=== PATIENT | male | born 1980 | race Caucasian/White ===

== ENCOUNTER 2016-12-05 14:20 | Emergency (ER) | payer OTHER ==
[~2016-12-05] VITALS: Ht 172 cm; Wt 75.0 kg
[2016-12-05 14:30] VITALS: BP 137/96
[2016-12-05] MEDS ORDERED: IBUP800T19 PO (14:47)
--- NOTE | 2016-12-05 14:47 | PHYS DOC ---
Past History Past Medical History: No Pertinent History Past Surgical History: Tonsillectomy Alcohol Use: Occasionally Drug Use: None Adult General Chief Complaint Chief Complaint: ANKLE PROBLEM HPI HPI Patient is a 35-year-old male who complains of left ankle pain after he inverted it this morning on a step. He has been bearing weight today. He has no prior injury to the left ankle. Review of Systems Review of Systems Constitutional: Denies fever or chills [] Allergies Allergies Allergies Coded Allergies Type Severity Reaction Last Updated Verified No Known Drug Allergies 12/05/16 No Physical Exam Physical Exam Constitutional: Well developed, well nourished, no acute distress, non-toxic appearance. Alert, ambulating without difficulty, nontoxic. HENT: Normocephalic, atraumatic, bilateral external ears normal, nose normal. [ ] Eyes: conjunctiva normal, no discharge. [] Neck: Normal range of motion, no stridor. [] Skin: Warm, dry, no erythema, no rash. [] Extremities: No tenderness, no cyanosis, no clubbing, ROM intact, no edema. Left lower extremity: Knee, proximal fibula nontender to palpation. Ankle without bony tenderness. Area of tenderness is over the proximal fifth metatarsal. There is no significant swelling. No swelling of the ankle. Neurologic: Alert and oriented X 3, normal motor function, normal sensory function, no focal deficits noted. [] Current Patient Data Vital Signs Vital Signs Date Time Temp Pulse Resp B/P (MAP) Pulse Ox O2 Delivery O2 Flow Rate FiO2 12/05/16 14:30 97.8 57 20 99 Room Air EKG EKG [] Radiology/Procedures Radiology/Procedures Three-view x-ray of the left foot read by me. No acute bony abnormality.[] Course & Med Decision Making Course & Med Decision Making Pertinent Labs and Imaging studies reviewed. (See chart for details) 35-year-old male twisted and inverted his left ankle and has pain over the fifth metatarsal base. X-ray does not show any fracture. Discussed with the patient that we will treated as a sprain. He is agreeable to that plan. [] Dragon Disclaimer Dragon Disclaimer This chart was dictated in whole or in part using Voice Recognition software in a busy, high-work load, and often noisy Emergency Department environment. It may contain unintended and wholly unrecognized errors or omissions. Departure Departure: Impression: Primary Impression: Sprain of left foot Disposition: HOME, SELF-CARE Condition: STABLE Referrals: PCP,UNKNOWN (PCP) Patient Instructions: Foot Sprain-Brief Additional Instructions: For 2-3 days, ice 15 minutes out of every 1-2 hours, and elevate when possible. Ibuprofen as needed for pain. If the pain is all gone, you do not need to do this. Scripts Ibuprofen (IBUPROFEN) 800 Mg Tablet 1 TAB PO TID, #30 TAB Prov: JAMIR ROY MD 12/05/16 JAMIR ROY MD Dec 05, 2016 14:47
--- NOTE | 2016-12-05 15:04 | RAD ---
Three-view left foot radiographs 12/05/2016 CLINICAL HISTORY: Injury to left foot with pain in the base of the left fifth metatarsal. Portable AP, lateral and oblique digital radiographs of left foot were obtained. No fracture or dislocation of left foot is seen. IMPRESSION: No fracture or dislocation left foot is seen. Electronically signed by: Max Harris MD (12/05/2016 3:00 PM) [id number]
== END 2016-12-05 14:53 | disposition home or self-care (01) ==
LOC: ER 14:20
DX: S93.602A Unspecified sprain of left foot, initial encounter (principal); X58.XXXA Exposure to other specified factors, initial encounter; Y93.89 Activity, other specified; Y99.8 Other external cause status; Y92.89 Other specified places as the place of occurrence of the external cause
CPT/HCPCS: 73630; 99284